=== PATIENT | female | born 1950 | race African-American/Black ===

== ENCOUNTER 2016-11-20 21:38 | Emergency (ER) | payer MEDICARE ==
[~2016-11-20] VITALS: Ht 172.7 cm; Wt 68.0 kg
[2016-11-21 00:19] VITALS: BP 158/75
[2016-11-21] MEDS ORDERED: ACETAMINOPHEN 325 MG TABLET PO ONE (00:30)
== END 2016-11-21 00:20 | disposition home or self-care (01) ==
LOC: ER 21:40
DX: S16.1XXA Strain of muscle, fascia and tendon at neck level, initial encounter (principal); Z88.5 Allergy status to narcotic agent; V49.49XA Driver injured in collision with other motor vehicles in traffic accident, initial encounter; Y93.89 Activity, other specified; Y92.89 Other specified places as the place of occurrence of the external cause; Y99.9 Unspecified external cause status
CPT/HCPCS: 71010; 72125; 72170; 99284; A4606; Z7610